=== PATIENT | female | born 1955 | race Caucasian/White ===

== ENCOUNTER 2021-01-02 11:24 | Outpatient (CLI) | payer OTHER, SELFPAY ==
--- NOTE | 2021-01-02 11:32 | ECG_ITS ---
Measurements Intervals [place] Rate: 68 P: 72 IL: 151 QRS: 23 QRSD: 117 T: 54 QT: 365 QTc: 391 Interpretive Statements SINUS RHYTHM POSSIBLE LEFT ATRIAL ENLARGEMENT INCOMPLETE RIGHT BUNDLE BRANCH BLOCK BASELINE ARTIFACT- I, II, AVR, AVL BORDERLINE ECG Electronically Signed On 01-02-2021 11:55:00 CDT by Michael Duque D.O.
== END 2021-01-02 11:25 | disposition home or self-care (01) ==
PROVIDERS: PCP Internal Medicine; Visit Provider Surgery Plastic and Reconstructive Surgery
DX: Z01.810 Encounter for preprocedural cardiovascular examination (principal); I10 Essential (primary) hypertension
CPT/HCPCS: 93005

== ENCOUNTER 2021-01-07 01:17 | Day surgery (SDC) | payer OTHER, SELFPAY ==
[2020-12-31 15:37] VITALS: BMI 20.6
[2021-01-07] VITALS (7 sets, daily range): BP systolic 121–139; BP diastolic 71–95; PULSE 55–79; RESP 12–18; TEMP 36–36.3; O2SAT 100
--- NOTE | 2021-01-07 08:24 | WPDHPUPDATE1 ---
History and Physical Update Update Date/Time: 01/07/21 08:24 History and Physical has been reviewed, including an updated exam of the patient. There are NO changes in the patient's condition. Risks, benefits, and alternatives have been discussed and questions answered. Patient agrees to proceed with procedure.
[2021-01-07] MEDS: LACTATED RINGERS 1,000 ML 30 ML IV CONT ×2 (08:32→10:23)
--- NOTE | 2021-01-07 08:37 | W.PM.PROC2 ---
Procedure Note - Detailed Date of Procedure 01/07/21 Pre-op Diagnosis hx of breast augmenation Post-op Diagnosis same Procedure Performed Bilateral breast implant exchange Surgeon Charanjit Winn MD Anesthesia general Findings New Implants Bilateral Natrelle Saline 300 filled to 320cc Right - REF# 68LP-300 SN [id number] Left - REF# 68LP-300 SN [id number] Old Implants Left breast implant rupture. 275cc. Textured. No worrisome features. Description of Procedure Preoperatively the risks, benefits, alternatives were discussed in extensive detail. I want her to be very realistic about the risks involved as well as expectations. All questions were answered to her satisfaction, she voiced understanding, consent obtained. She was marked in the preoperative holding area. She would like to change to IMF scar. She was taken to the operating room placed supine on the operating room table. Anesthesia provided by anesthesiology and prepped and draped in a standard sterile fashion. Surgical time-out was taken. 1% lidocaine and 0.25% Marcaine with epinephrine was used to provide a field block. Fifteen blade used to make an IMF incision. I continued dissection down until the capsule was identified. I incised capsule and the implants were identified. Details as above. So popcorn capsulorrhaphy on low was completed on the lateral aspect as she was having lateral migration. I did complete contralateral capsulotomy. I irrigated copiously with saline containing bacitracin solution on TUR tubing. Verified strict hemostasis. I then irrigated with triple antibiotic Betadine containing solution. On the back table the implant was prepared. Removal air. His after 4 she may gloves with the Betadine triple antibiotic solution. Implant was introduced and filled to the volumes as above. I closed with 2-0 Vicryl followed by 3-0 Monocryl in a running subcuticular 4-0 Monocryl and tissue glue. Dressings were placed. She tolerated well. Estimated Blood Loss 20 Drains No Packing No Pathology yes (Textured implants - capsules sent.) Complications No immediate complications Condition stable Disposition PACU
--- NOTE | 2021-01-07 08:42 | SUR.PREOP ---
Dr. Og notified that patient took her 100mg losartan this AM
--- NOTE | 2021-01-07 08:42 | WPDANESEPPF ---
Anes - Initial Pre Proc Eval Procedure: Operation Date: 01/07/21 09:00 Proposed Procedures p Bilateral Breast Implant Exchange - Charanjit Wnin MD Date/Time: 01/07/21 08:42 Surgeon: Charanjit Winn MD Pre Op Diagnosis: hx of breast augmenation Patient Data Age: 65 Gender: F Height: 1.63 m Weight: 54.8 kg Last Vital Signs Temp 36.3 C L 01/07/21 07:50 Pulse 79 01/07/21 07:50 Resp 18 01/07/21 07:50 BP 137/86 01/07/21 07:50 Pulse Ox 100 01/07/21 07:50 Allergies Allergy/AdvReac Type Severity Reaction Status Date / Time No Known Allergies Allergy Verified 01/07/21 07:35 Home Medications Medication Instructions Recorded Confirmed Type amlodipine 5 mg tablet 5 mg PO DAILY 11/20/20 01/07/21 History losartan 100 mg tablet 100 mg PO DAILY 11/20/20 01/07/21 History risedronate 150 mg tablet 150 mg PO MONTHLY 11/20/20 01/07/21 History ondansetron HCl 4 mg tablet 4 mg PO Q8H #21 tablet 12/23/20 01/07/21 Rx carisoprodol 350 mg tablet 350 mg PO TID PRN #21 tablet 12/25/20 01/07/21 Rx oxycodone-acetaminophen 5 mg-325 1 tablet PO Q6H PRN #15 tablet 12/25/20 01/07/21 Rx mg tablet cholecalciferol (vitamin D3) 2,000 unit PO DAILY 12/31/20 01/07/21 History [Vitamin D3] Patient hx anesthesia problems: none Family hx anesthesia problems: none PMFSH Surgical History Surgical History History of breast augmentation Family History Family History Father Hypertension Mother Hypertension COPD (chronic obstructive pulmonary disease) Social History Social History Smoking status: Former smoker Tobacco type: cigarettes Smoking end date: 11/26/20 Additional smoking assessment comments: 1/2ppd x20 years Alcohol intake: current Drinks per week: 3 Living arrangements: with family Spiritual care concerns: No Anes - Eval Final PreProcedure Day of Procedure 01/07/21 08:42 Patient weight: normal Heart: regular rate and rhythm Lungs: clear to auscultation Airway: Mallampati scale class 1 Neurological: alert and oriented Last oral intake: >/= 8 hours ASA classification: II Emergent: no Anesthetic plan: proceed Anesthesia type and monitoring: general LMA and standard monitoring Informed Consent: The patient's anesthetic plan and its attendant risks and benefits were discussed with the patient/family/POA. Questions were solicited and answers provided to the satisfaction of the patient/family/POA.
[2021-01-07] MEDS: ceFAZolin 2 GM/D5W 50 ML 2 GM/50 ML BAG IVPB (09:04)
[2021-01-07] MEDS: LIDO 1%/EPINEPHRINE/PF 1:200,000 30 ML VIAL 40 ML XX (09:27)
--- NOTE | 2021-01-07 09:49 | SUR.OPER ---
RIGHT BREAST IMPLANT 68LP, [id number], EXP 2024-02-14. NS IV FILL LOT [id number], EXP AUG 2022.
--- NOTE | 2021-01-07 10:02 | SUR.OPER ---
LEFT BREAST IMPLANT 68LP 300CC, SN [id number], [id number] IV NS FILL SAME FLUID RIGHT/SEE RIGHT DOCUMENTATION.
--- NOTE | 2021-01-07 10:04 | SUR.OPER ---
BILATERAL BREAST SALINE FILL 320ML EACH.
[2021-01-07] MEDS: IBUPROFEN 400 MG TABLET PO (11:23)
--- NOTE | 2021-01-07 11:30 | SUR.PHASEII ---
DISREGARD CHARTING AT 1124.
== END 2021-01-07 11:58 | disposition home or self-care (01) ==
PROVIDERS: PCP Internal Medicine; Visit Provider Surgery Plastic and Reconstructive Surgery
PROC: (CPT 19342; principal; 2021-01-07 09:00)
DX: Z41.1 Encounter for cosmetic surgery (principal); T85.41XA Breakdown (mechanical) of breast prosthesis and implant, initial encounter; Y83.8 Other surgical procedures as the cause of abnormal reaction of the patient, or of later complication, without mention of misadventure at the time of the procedure; Z87.891 Personal history of nicotine dependence
CPT/HCPCS: 19325; 19371; 88304; A9270; J0690; J1100; J1580; J2250; J2405; J2704; J3010; J7030; J7120